=== PATIENT | female | born 1985 | race Caucasian/White ===

== ENCOUNTER → 2020-06-14 09:29 | Outpatient (CLI) | payer OTHER, SELFPAY ==
[2020-06-09 08:42] VITALS: BMI 19.2
--- NOTE | 2020-06-14 09:30 | US_ITS ---
STUDY: ULTRASOUND BREAST - RIGHT REASON FOR EXAM: Female, 35 years old. Palpable lump in the right breast. TECHNIQUE: Axial and longitudinal images of the RIGHT breast were performed with a high resolution ultrasound transducer. # OF IMAGES: 15 COMPARISON: None. FINDINGS: RIGHT Breast: The 4 o''clock region of the breast was examined by ultrasound. No solid or cystic nodule is seen. There are mildly dilated ducts. US/Breast Limited Unilateral IMPRESSION: Mildly dilated ducts. No solid or cystic mass is seen. ASSESSMENT CATEGORY: BIRADS Category 2: Benign. A letter regarding these results will be sent to the patient by the facility within 30 days. Electronically Signed: Joe Yoo, at 11:21 EDT , Service support ,
== END ==
PROVIDERS: PCP Nurse Practitioner Family; Referring Provider Nurse Practitioner Women's Health; Visit Provider Nurse Practitioner Women's Health
DX: N63.10 Unspecified lump in the right breast, unspecified quadrant (principal)
CPT/HCPCS: 76642

== ENCOUNTER → 2020-07-07 16:23 | Outpatient (CLI) | payer OTHER, SELFPAY ==
[2020-07-07 10:08] VITALS: BMI 18.9
[2020-07-07 18:17] LABS: Amphetamine Urine VISTA NEGATIVE (<1000 ng/mL); Barbiturate Urine VISTA NEGATIVE (< 200 ng/mL); Benzodiazepine Urine VISTA NEGATIVE (< 200 ng/mL); Cocaine Urine VISTA NEGATIVE (< 300 ng/mL); Ecstacy Urine VISTA NEGATIVE (< 500 ng/mL); Methadone Urine VISTA NEGATIVE (< 300 ng/mL); PCP Urine VISTA NEGATIVE (< 25 ng/mL); THC Urine VISTA NEGATIVE (< 50 ng/mL); Vista UDS pH Range 6
[2020-07-12 03:06] LABS: Chlamydia By Nucleic Acid AMP Negative (Negative)
[2020-07-12 12:06] LABS: Gonococcus By Nucleic Acid AMP Negative (Negative)
[2020-07-12 15:39] LABS: HPV APTIMA, High Risk Negative (Negative)
== END ==
PROVIDERS: PCP Nurse Practitioner Family; Visit Provider Obstetrics & Gynecology
DX: O09.90 Supervision of high risk pregnancy, unspecified, unspecified trimester (principal); Z12.4 Encounter for screening for malignant neoplasm of cervix; Z3A.00 Weeks of gestation of pregnancy not specified
CPT/HCPCS: 80307; 87086; 87088; 87491; 87591; 87624; 88175; G0145

== ENCOUNTER → 2020-07-21 11:39 | Outpatient (CLI) | payer OTHER, SELFPAY ==
[2020-07-07 10:08] VITALS: BMI 18.9
[2020-07-21 12:22] LABS: Absolute Lymphocyte Count 1.28 X10^3/uL (0.83-4.51); Absolute Neutrophil Count 6.2 X10^3/uL (2.0-7.7); Basophil# 0.04 X10^3/uL; Basophil% 0.5 % (0-1); Eosinophil# 0.12 X10^3/uL; Eosinophils% 1.4 % (0-5); Hemoglobin 13.5 g/dL (12.0-15.0); Lymphocyte # 1.28 X10^3/ul (4.0); Mean Corp Hgb Conc 32.9 g/dL (32-36); Mean Corpuscular Hgb 30.5 pg (27.0-32.0); Mean Corpuscular Volume 92.8 fL (81-99); Mean Platelet Vol. 10.3 fl (6.2-12.0); Monocyte# 0.85 X10^3/uL; NRBC Flagged by Analyzer 0 % (0-5); Neutrophil # 6.22 X10^3/uL (2.7-7.7); Neutrophil % 72.7 % (47-70); Platelet Count 197 K/mm3 (150-450); RBC Distribution Width CV 11.7 % (11.6-14.6); RBC Distribution Width SD 39.6 fl (35.1-43.9); Red Blood Count 4.42 M/mm3 (4.2-5.4); White Blood Count 8.5 K/mm3 (4.4-11.0)
[2020-07-21 14:40] LABS: HIV - WCH Non-Reactive (Nonreactive); Hepatitis B Surface Antigen Non-Reactive (Nonreactive); Hepatitis C Antibody Non-Reactive (Nonreactive)
[2020-07-28 01:20] LABS: Rapid Plasmin Reagin (RPR) NONREACTIVE (NONREACTIVE)
== END ==
PROVIDERS: PCP Nurse Practitioner Family; Referring Provider Obstetrics & Gynecology; Visit Provider Obstetrics & Gynecology
DX: O09.90 Supervision of high risk pregnancy, unspecified, unspecified trimester (principal); O09.521 Supervision of elderly multigravida, first trimester; Z3A.00 Weeks of gestation of pregnancy not specified
CPT/HCPCS: 36415; 85025; 86592; 86703; 86803; 86850; 86900; 86901; 87340

== ENCOUNTER → 2020-08-01 14:01 | Outpatient (CLI) | payer OTHER, SELFPAY ==
[2020-08-01 13:31] VITALS: BMI 20.2
[2020-08-01 15:08] LABS: Rubella IgG Reactive (Nonreactive)
== END ==
PROVIDERS: PCP Nurse Practitioner Family; Referring Provider Obstetrics & Gynecology; Visit Provider Obstetrics & Gynecology
DX: O09.90 Supervision of high risk pregnancy, unspecified, unspecified trimester (principal); Z3A.00 Weeks of gestation of pregnancy not specified
CPT/HCPCS: 36415; 86762

== ENCOUNTER → 2020-11-17 12:39 | Outpatient (CLI) | payer OTHER, SELFPAY ==
[2020-10-27 13:56] VITALS: BMI 22.6
[2020-11-17 13:36] LABS: Absolute Lymphocyte Count 1.11 X10^3/uL (0.83-4.51); Absolute Neutrophil Count 8.7 X10^3/uL (2.0-7.7); Basophil# 0.08 X10^3/uL; Basophil% 0.7 % (0-1); Eosinophil# 0.14 X10^3/uL; Eosinophils% 1.2 % (0-5); Hematocrit 34.3 % (37-47); Hemoglobin 11.7 g/dL (12.0-15.0); Lymphocyte # 1.11 X10^3/ul (4.0); Lymphocyte % 9.9 % (19-41); Mean Corp Hgb Conc 34.1 g/dL (32-36); Mean Corpuscular Hgb 32.1 pg (27.0-32.0); Monocyte# 1.02 X10^3/uL; Monocyte% 9.1 % (0-10); NRBC Flagged by Analyzer 0 % (0-5); Neutrophil # 8.69 X10^3/uL (2.7-7.7); Neutrophil % 77.3 % (47-70); Platelet Count 193 K/mm3 (150-450); RBC Distribution Width CV 12.1 % (11.6-14.6); RBC Distribution Width SD 41.9 fl (35.1-43.9); Red Blood Count 3.65 M/mm3 (4.2-5.4); White Blood Count 11.2 K/mm3 (4.4-11.0)
[2020-11-17 13:56] LABS: Glucose Challenge Gest 1H 50g 96 mg/dL (70-140)
== END ==
PROVIDERS: PCP Nurse Practitioner Family; Referring Provider Obstetrics & Gynecology; Visit Provider Obstetrics & Gynecology
DX: Z34.90 Encounter for supervision of normal pregnancy, unspecified, unspecified trimester (principal)
CPT/HCPCS: 36415; 82950; 85025

== ENCOUNTER → 2021-01-13 15:28 | Outpatient (CLI) | payer OTHER, SELFPAY ==
[2021-01-13 14:11] VITALS: BMI 25.2
== END ==
PROVIDERS: PCP Nurse Practitioner Family; Referring Provider Obstetrics & Gynecology; Visit Provider Obstetrics & Gynecology
DX: Z34.90 Encounter for supervision of normal pregnancy, unspecified, unspecified trimester (principal); Z3A.36 36 weeks gestation of pregnancy
CPT/HCPCS: 87081

== ENCOUNTER 2021-02-17 10:00 | Inpatient (IN) | payer OTHER, SELFPAY ==
[2021-02-10 14:01] VITALS: BMI 27.4
[2021-02-17] VITALS (11 sets, daily range): BP systolic 95–121; BP diastolic 54–63; PULSE 74–95; RESP 16; TEMP 36.7–37.2; O2SAT 100; BMI 26.3
[2021-02-17] MEDS: Lactated Ringers 1,000 ML 50 ML IV (10:25)
[2021-02-17 10:37] LABS: Absolute Lymphocyte Count 1.18 X10^3/uL (0.83-4.51); Absolute Neutrophil Count 11.6 X10^3/uL (2.0-7.7); Basophil# 0.05 X10^3/uL; Basophil% 0.3 % (0-1); Eosinophils% 0.7 % (0-5); Hematocrit 37.5 % (37-47); Hemoglobin 12.5 g/dL (12.0-15.0); Lymphocyte # 1.18 X10^3/ul (0.83-4.51); Mean Corp Hgb Conc 33.3 g/dL (32-36); Mean Corpuscular Hgb 31.4 pg (27.0-32.0); Mean Corpuscular Volume 94.2 fL (81-99); Mean Platelet Vol. 10.2 fl (6.2-12.0); Monocyte# 1.51 X10^3/uL; Monocyte% 10.3 % (0-10); NRBC Flagged by Analyzer 0 % (0-5); Neutrophil # 11.64 X10^3/uL (2.7-7.7); Neutrophil % 79.4 % (47-70); POSITIVE DIFFERENTIAL YES; Platelet Count 225 K/mm3 (150-450); RBC Distribution Width CV 13.1 % (11.6-14.6); RBC Distribution Width SD 45.1 fl (35.1-43.9); Red Blood Count 3.98 M/mm3 (4.2-5.4); White Blood Count 14.7 K/mm3 (4.4-11.0)
[2021-02-17 10:40] LABS: Differential Indicated SCAN CRITERIA MET
[2021-02-17] MEDS: Oxytocin 30 units/NS 500 ml 30 UNITS/500 ML IV.SOLN 334 UNITS IV (11:09)
--- NOTE | 2021-02-17 11:26 | HP.PCM.OB_ITS ---
HPI - General General Date of Admission: 02/17/21 HPI Narrative MIKKI CORONA, is a 35 F at 41 weeks who presents in active labor. Maternal Data Information NASRIN Calculator Estimated Delivery Date Method Current WG Current Estimate 02/10/21 LMP (Certain) 41w 0d PFSH PFS Medical History (Updated 02/17/21 @ 11:[address] Sara Lopez MD) Migraines Home Medications magnesium sulfate 100 mg capsule 100 mg PO DAILY 06/09/20 [History Last Taken Unknown] vitamin#30 30 mg iron-10 mg iron-folic acid 1 mg-omg3 capsule 1 cap PO DAILY 06/09/20 [History Last Taken 02/15/21] Allergy/AdvReac Type Severity Reaction Status Date / Time No Known Allergies Allergy Verified 02/10/21 14:01 Family History Mother Hypertension Father DVT (deep venous thrombosis) Grandfather Heart disease Grandmother Breast cancer Grandfather Cancer Surgical History H/O oral surgery Social History Smoking Status: Never smoker second hand exposure: No alcohol intake: never substance use type: does not use caffeine: No what type of physical activity do you participate in: walking seatbelt use: always do you feel safe at home: Yes additional social history: Yfn- [place] Patient works at [employer] History 3 Elective abortions Hx Para 1 Spontaneous abortions 1 Hx # Term Pregnancies Ectopic pregnancies Hx # Pregnancies Multiple births # of living children 1 Past Pregnancies Del. Date Name GA/Weeks Outcome Route Bth Weight Gen Labor Lgth Anesthesia Del Locatn Provider FOB Unknown 2018 Michel 41 live - full term 7lbs 1oz Male 26 hours epidural [facility] Delivery Date: face up presentation; forceps were used Sabrina Gramajo Visit Details Expected Delivery Route/Plan by 41 weeks, plan nst at 40 Labor Preferences- labor support person: Yfn labor intervention preferences: none pain management options preferred: ? hydrotherapy, epidural cut cord/dad catch: maybe : yes PP control planned: condoms discussed possible routes of delivery and associated risks: [] special requests: [] Plans flu vaccine: given tdap vaccine: given rhogam: na LARC form signed: yes movement and labor precautions reviewed. Problem list reviewed and updated with the most current plan of care details and appropriate orders placed. Relevant counseling for the gestational age provided. Continue routine care and follow up unless otherwise noted in visit notes/problem list details OB Flowsheet Initial Weight: 120 lb Date -?-?-?-?-?-?-?-?-?-?-?-?- EGA Weight BP Urine Prot -?-?-?-?-?-?-?-?-?-?-?-?- Glucose FHR FuHt Pres Dilation -?-?-?-?-?-?-?-?-?-?-?-?- Effaced St Visit Note 07/07/20 -?-?-?-?-?-?-?-?-?-?-?-?- 8w 6d 117 lb 8 oz (-2 lb 8 oz) 98/60 -?-?-?-?-?-?-?-?-?-?-?-?- 185 -?-?-?-?-?-?-?-?-?-?-?-?- GP - CRL 23mm co nsistent with LMP. 08/01/20 -?-?-?-?-?-?-?-?-?-?-?-?- 12w 3d 125 lb 8 oz (+5 lb 8 oz) 90/70 Negative -?-?-?-?-?-?-?-?-?-?-?-?- Negative 130 -?-?-?-?-?-?-?-?-?-?-?-?- GP - no cramping or bleeding. PRR. No rubella drawn with NOB labs - will get drawn today. Anatomy scan ordered. GP - no cramping or bleeding . PRR. No rubella drawn with NOB labs - will get drawn today. Anatomy scan ordered. Discussed measures for constipation. 08/31/20 -?-?-?-?-?-?-?-?-?-?-?-?- 16w 5d 132 lb (+12 lb) 109/70 Negative -?-?-?-?-?-?-?-?-?-?-?-?- Negative 155 -?-?-?-?-?-?-?-?-?-?-?-?- Sm- no vb lof no cramping 09/30/20 -?-?-?-?-?-?-?-?-?-?-?-?- 21w 0d 140 lb (+20 lb) 110/76 Negative -?-?-?-?-?-?-?-?-?-?-?-?- Negative 145 -?-?-?-?-?-?-?-?-?-?-?-?- SM- no vb crampi ng 10/27/20 -?-?-?-?-?-?-?-?-?-?-?-?- 24w 6d 140 lb 8 oz (+20 lb 8 oz) 102/70 Negative -?-?-?-?-?-?-?-?-?-?-?-?- Negative 150 -?-?-?-?-?-?-?-?-?-?-?-?- GP - no ctx, LOF , VB, DFM. GCT next visit. Has F/U with MFM later this month. 11/17/20 -?-?-?-?-?-?-?-?-?-?-?-?- 27w 6d 145 lb (+25 lb) 106/60 Negative -?-?-?-?-?-?-?-?-?-?-?-?- Negative 154 28 -?-?-?-?-?-?-?-?-?-?-?-?- MH-No VB, LOF. 2 8 wk labs, tdap, larc. Next echo is 12/27. MFM growth US is 12/0512/02/20 -?-?-?-?-?-?-?-?-?-?-?-?- 30w 0d 150 lb (+30 lb) 118/62 Negative -?-?-?-?-?-?-?-?-?-?-?-?- Negative 145 29 -?-?-?-?-?-?-?-?-?-?-?-?- SM- no vb lof go od fm nor egular ctx has fu mfm scan next week, and then fu echo in 12/16/20 -?-?-?-?-?-?-?-?-?-?-?-?- 32w 0d 152 lb 4 oz (+32 lb 4 oz) 116/62 Negative -?-?-?-?-?-?-?-?-?-?-?-?- Negative 125 32 -?-?-?-?-?-?-?-?-?-?-?-?- GP - no LOF, VB, DFM, ctx. Denies complaints. 12/30/20 -?-?-?-?-?-?-?-?-?-?-?-?- 34w 0d 156 lb (+36 lb) 102/74 Negative -?-?-?-?-?-?-?-?-?-?-?-?- Negative 135 34 -?-?-?-?-?-?-?-?-?-?-?-?- SM- no vb lof go od fm no regular ctx 01/13/21 -?-?-?-?-?-?-?-?-?-?-?-?- 36w 0d 159 lb (+39 lb) 112/60 Negative -?-?-?-?-?-?-?-?-?-?-?-?- Negative 140 36 Cephalic -?-?-?-?-?-?-?-?-?-?-?-?- GP - no LOF, VB, DFM, ctx. GBS today. 01/19/21 -?-?-?-?-?-?-?-?-?-?-?-?- 36w 6d 162 lb 2 oz (+42 lb 2 oz) 128/72 Negative -?-?-?-?-?-?-?-?-?-?-?-?- Negative 145 37 Cephalic -?-?-?-?-?-?-?-?-?-?-?-?- GP - no LOF, VB, DFM, ctx. Denies complaints. 3 ER shifts left. 01/27/21 -?-?-?-?-?-?-?-?-?-?-?-?- 38w 0d 162 lb (+42 lb) 118/62 -?-?-?-?-?-?-?-?-?-?-?-?- 140 37 Cephalic -?-?-?-?-?-?-?-?-?-?-?-?- SM- no vb lof go od fm no regular ctx 02/03/21 -?-?-?-?-?-?-?-?-?-?-?-?- 39w 0d 163 lb (+43 lb) 123/77 Negative -?-?-?-?-?-?-?-?-?-?-?-?- Negative 140 38 Cephalic -?-?-?-?-?-?-?-?-?-?-?-?- SM- no vb lof go od fm some rectal pressure 02/10/21 -?-?-?-?-?-?-?-?-?-?-?-?- 40w 0d 170 lb 2 oz (+50 lb 2 oz) 120/80 Negative -?-?-?-?-?-?-?-?-?-?-?-?- Negative 130 40 Cephalic 1 -?-?-?-?-?-?-?-?-?-?-?-?- 50 -3 GP - no LO F, VB, DFM, ctx. NST reactive. BARBARA 11 with DVP 3.8. Scheduled for IOL at 41/0 02/17/21 -?-?-?-?-?-?-?-?-?-?-?-?- 41w 0d 163 lb 2.273 oz (+43 lb 2.273 oz) 121/61 -?-?-?-?-?-?-?-?-?-?-?-?- -?-?-?-?-?-?-?-?-?-?-?-?- NST FHR Rate Baby A Baseline: 130 Variability:: Moderate Accelerations:: 15 x 15 Decelerations:: None NST Reactive:: Yes FHR Category:: Category I Uterine Activity:: q2-3min ROS Eyes Eyes: Reports systems reviewed and no addt'l complaints, except as documented ENT HEENT: Reports systems reviewed and no addt'l complaints, except as documented Cardiovascular Cardiovascular: Reports systems reviewed and no addt'l complaints, except as documented Respiratory/Chest Respiratory/Chest: Reports systems reviewed and no addt'l complaints, except as documented Gastrointestinal Gastrointestinal: Reports systems reviewed and no addt'l complaints, except as documented Genitourinary Genitourinary: Reports systems reviewed and no addt'l complaints, except as documented Musculoskeletal Musculoskeletal: Reports systems reviewed and no addt'l complaints, except as documented Integumentary Integumentary: Reports systems reviewed and no addt'l complaints, except as documented Neurologic Neurologic: Reports systems reviewed and no addt'l complaints, except as documented Psychiatric Psychiatric: Reports systems reviewed and no addt'l complaints, except as documented Endocrine Endocrinology: Reports systems reviewed and no addt'l complaints, except as documented Hematologic/Lymphatic Hematologic/Lymphatic: Reports systems reviewed and no addt'l complaints, except as documented Allergic/Immunologic Allergic/Immunologic: Reports systems reviewed and no addt'l complaints, except as documented Vital Signs Vital Signs Vital Signs: 02/17/21 11:22 Pulse Rate 85 Blood Pressure 121/61 H BP Systolic 121 BP Diastolic 61 Weight Weight: 163 lb 2.273 oz Body Mass Index (BMI) 26.3 Physical Exam Const alert, oriented x3, no apparent distress, average body habitus, healthy appe aring and well nourished HEENT normocephalic and moist oral mucous membranes Head and Scalp: atraumatic Eyes PERRL and EOMs intact bilaterally Neck full ROM Resp normal respiratory effort, no retractions and no use of accessory muscles Cardio regular rate and regular rhythm GI soft to palpation, non-tender and non-distended Extremity normal to inspection and full ROM Skin no rashes or lesions noted Neuro no focal motor deficits and no sensory deficits noted Psych mental status grossly normal, affect normal, speech normal and activity/motor behavior normal Labs Labs Labs: Blood Type B POSITIVE Antibody Screen NEGATIVE Hct 37.5 % (37-47) Hgb 12.5 g/dL (12.0-15.0) Rubella IgG Antibody Reactive (Nonreactive) Hep Bs Antigen Non-Reactive (Nonreactive) Neisseria gonorrhoeae DNA (ALMA) Negative (Negative) HIV 1&2 Antibody Non-Reactive (Nonreactive) Glucose 1 Hr 50 gm 96 mg/dL (70-140) Miscellaneous Test Assessment & Plan (1) Active labor at term: PLAN: Patient presents IAL, plan expectant management for , pitocin/AROM PRN if needed. Pain management: plans natural GBS negative. Management of any complications: none I have reviewed the [facility] and made any clinically relevant updates. (2) COVID-19 vaccine administered: COMMENT: moderna. s/p 2 doses. no covid test needed prior to delivery. (3) 32 weeks gestation of : COMMENT: COVID test ordered 12/21/20 (sche 02/03 2:40pm) (4) Abnormal echocardiogram affecting antepartum care of mother: QUALIFIERS: Fetus number: single or unspecified fetus Qualified Code(s): O35.8XX0 - Maternal care for other (suspected) abnormality and damage, not applicable or unspecified COMMENT: right sided aortic arch- confirmed at [facility] on 10/14/2020:repeat echo 4 weeks (12/27)and will need cardiology visit 1-2 wks post delivery. (5) AMA (advanced maternal age) multigravida 35+: QUALIFIERS: Trimester: second trimester Qualified Code(s): O09.522 - Supervision of elderly multigravida, second trimester COMMENT: growth scan at 36 weeks (6) Supervision of high risk , antepartum: COMMENT: PRR NASRIN 02/10/21, girl, PC: Michel Spouse: Yfn (7) : QUALIFIERS: Weeks of gestation: 40 weeks Qualified Code(s): Z3A.40 - 40 weeks gestation of COMMENT: Declines carrier and NTD, genetic low risk. anatomy reviewed. Negative GBS
--- NOTE | 2021-02-17 11:33 | EX.PCM.OBRPT ---
Assessment & Plan (1) Vaginal delivery: (2) Active labor at term: (3) COVID-19 vaccine administered: COMMENT: moderna. s/p 2 doses. no covid test needed prior to delivery. (4) 32 weeks gestation of : COMMENT: COVID test ordered 12/21/20 (sche 02/03 2:40pm) (5) Abnormal echocardiogram affecting antepartum care of mother: QUALIFIERS: Fetus number: single or unspecified fetus Qualified Code(s): O35.8XX0 - Maternal care for other (suspected) abnormality and damage, not applicable or unspecified COMMENT: right sided aortic arch- [facility]:repeat echo 4 weeks (12/27)and will need cardiology visit 1-2 wks post delivery. (6) AMA (advanced maternal age) multigravida 35+: QUALIFIERS: Trimester: second trimester Qualified Code(s): O09.522 - Supervision of elderly multigravida, second trimester COMMENT: growth scan at 36 weeks (7) Supervision of high risk , antepartum: COMMENT: PRR NASRIN 02/10/21, girl, PC: Michel Spouse: Yfn (8) : QUALIFIERS: Weeks of gestation: 40 weeks Qualified Code(s): Z3A.40 - 40 weeks gestation of COMMENT: Declines carrier and NTD, genetic low risk. anatomy reviewed. Negative GBS Maternal Data Information NASRIN Calculator Estimated Delivery Date Method Current WG Current Estimate 02/10/21 LMP (Certain) 41w 0d Vaginal Delivery Maternal Presentation Maternal Presentation: Active Labor Maternal Presentation: 35-year-old G2, P1 at 41 weeks admitted in active labor. Patient made rapid cervical change without augmentation. Operative Information Date of Procedure: 02/17/21 Pre-Operative Diagnosis: Term , active labor Post-Operative Diagnosis: Same Surgery / Procedure Performed: Spontaneous Vaginal Delivery Type of Anesthesia: Local with 1% Lidocaine Estimated Blood Loss: 200 cc Findings Description of Procedure: Patient began pushing and delivered the head in the PACHECO presentation. The head was delivered atraumatically and no nuchal cord was noted. The anterior and posterior shoulders delivered without complication followed by the rest of the infant and the was placed on the maternal abdomen. Delayed cord clamping was employed for approximately 60 seconds. Cord was clamped and cut and gentle traction was applied to the cord and the placenta delivered spontaneously immediately following it was noted to be intact with three-vessel cord. The perineum and vagina were inspected and a first-degree perineal laceration was noted and repaired in the standard fashion using 3-0 Vicryl Rapide suture. EBL was 200 cc. Patient and infant tolerated delivery well. Presentation: Vertex and PACHECO Amniotic Membrane Rupture Type: Spontaneous Amniotic Fluid Description: Clear Placental Delivery Description: Spontaneous Placenta Disposition: [facility] Cord Vessel Description: 3 Vessels Cord Entanglement: None A Gender: Female Delayed Cord Clamping: Yes Post Vaginal Delivery Medications Given After Delivery: IV Pitocin Episiotomy Description: None Laceration: Midline, Perineal Extension/lac and 1st degree Complication Complications: None Procedures Urinary/Genital [id number]: [id number] Vaginal Delivery [facility]
[2021-02-17] MEDS: Naproxen 500 MG Tablet PO ×2 (12:31→21:33)
[2021-02-17] MEDS: 0.9% Saline Lock 10 ML Syringe IV (13:43)
--- NOTE | 2021-02-17 16:42 | DCINST_ITS ---
Discharge Instructions Diet Discharge Diet: No restrictions Activity Discharge Activity: Return to Normal Activity, May Not Drive (while taking narcotic pain medications.) and May Shower May resume sexual activity in: 4-6 weeks Dressing / Incision Call your doctor if your incision/area has: Continuous Slow Oozing, Sudden Increased Bleeding, Increased Pain/ Swelling, Increased Redness and Foul Smelling Discharge Follow Up Care When: Call to make an appointment with your doctor in 6 weeks. If you had elevated Blood Pressure or 4th degree laceration you will need to be seen in 2 weeks. Test Results: Test results from this visit will be discussed in further detail at your follow-up appointment, if applicable. Discharge Plan Admission Admit Date/Time: 02/17/21 10:00 Attending Provider: Sara Lopez Primary Care Provider: Leti Walter NP Instructions Patient Instructions: After a Vaginal Discharge Orders/Prescriptions Prescriptions: New naproxen 250 MG tablet 250 - 500 mg PO Q8H PRN PRN (Reason: MILD PAIN) Qty: 30 RF: 1 Continued vitamin#30 30 mg iron-10 mg iron-folic acid 1 mg-omg3 capsule 30 mg iron-10 mg iron-1 mg capsule 1 cap PO DAILY RF: 0 magnesium sulfate 100 mg capsule 100 mg PO DAILY RF: 0 Referrals / Follow Up: Leti Walter NP, [employer] [Primary Care Provider] -
[2021-02-18] VITALS (8 sets, daily range): BP systolic 104–110; BP diastolic 55–58; PULSE 75–127; RESP 14–16; TEMP 36.8–36.9; O2SAT 82–98
--- NOTE | 2021-02-18 06:52 | PN.OBGYN_ITS ---
Subjective Subjective Patient doing well without complaints. Tolerating PO. Ambulating and voiding without difficulty. Feeding well. Denies chest pain, shortness of breath, calf pain/swelling, fevers, chills, lightheadedness. Objective Data Objective Data Vital Signs: Vital Signs Temp Pulse Resp BP Pulse Ox 98.3 F 84 16 108/55 L 82 02/18/21 04:30 02/18/21 04:37 02/18/21 04:30 02/18/21 04:37 02/18/21 04:36 Oxygen Delivery Method Room Air Weight: 163 lb 2.273 oz Body Mass Index (BMI) 26.3 Intake & Output: Intake and Output for Last 24 Hours 02/16/21 02/17/21 02/18/21 23:59 23:59 23:59 Intake Total 537.50 / 537.50 Balance 537.50 / 537.50 Lab / Micro Data Result Diagrams: 02/17/21 10:25 Labs: Laboratory Results - last 24 hr 02/17/21 02/17/21 10:25 10:25 WBC 14.7 H RBC 3.98 L Hgb 12.5 Hct 37.5 MCV 94.2 MCH 31.4 MCHC 33.3 RDW Std Deviation 45.1 H RDW Coeff of Timothy 13.1 Plt Count 225 MPV 10.2 Immature Gran % (Auto) 1.300 H Neut % (Auto) 79.4 H Lymph % (Auto) 8.0 L [place] % (Auto) 10.3 H Eos % (Auto) 0.7 Baso % (Auto) 0.3 Absolute Neuts (auto) 11.6 H Absolute Lymphs (auto) 1.18 Nucleated RBC % 0 [address] Path Review May foll Blood Type B POSITIVE Antibody Screen NEGATIVE ROS Constitutional Constitutional: Denies fever(s) Cardiovascular Cardiovascular: Denies chest pain, dyspnea or lightheadedness Gastrointestinal Gastrointestinal: Reports abdominal pain; Denies constipation or diarrhea Neurologic Neurologic: Denies dizziness or headache(s) Physical Exam Const alert, oriented x3, no apparent distress, average body habitus, healthy appearing and well nourished HEENT normocephalic Head and Scalp: atraumatic Eyes PERRL and EOMs intact bilaterally Neck full ROM Lymph Lymphatic: no lymphadenopathy noted Resp normal respiratory effort, no retractions and no use of accessory muscles Cardio regular rate GI soft to palpation, non-tender and non-distended Palpation: other Other Details: fundus firm Extremity normal to inspection and no clubbing, cyanosis or edema Skin no rashes or lesions noted Neuro no focal motor deficits and no sensory deficits noted Psych mental status grossly normal, affect normal and speech normal Assessment & Plan (1) Vaginal delivery: PLAN: s/p PPD # 1 1. routine post delivery care 2. breast feeding- support given 3. rh positive 4. rubella immune
[2021-02-20 13:27] LABS: Pathologist Review Reviewed
== END 2021-02-18 13:30 | disposition home or self-care (01) | DRG 807 ==
PROVIDERS: Admitting Provider Obstetrics & Gynecology; PCP Nurse Practitioner Family; Visit Provider Obstetrics & Gynecology
DX: O70.0 First degree perineal laceration during delivery (principal); Z37.0 Single live birth; Z3A.41 41 weeks gestation of pregnancy
CPT/HCPCS: 59025; 59050; 85025; 86850; 86900; 86901; 99218; J7120; A4216; G0378

== ENCOUNTER → 2025-05-20 | Outpatient (CLI) | payer MEDICAID, SELFPAY ==
[2025-05-24 21:07] LABS: Chlamydia By Nucleic Acid AMP Negative (Negative); Gonococcus By Nucleic Acid AMP Negative (Negative)
[2025-05-26 13:08] LABS: HPV APTIMA, High Risk Negative (Negative)
== END | disposition home or self-care (01) ==
LOC: LABSPEC 15:07
PROVIDERS: PCP Physician Assistant; Referring Provider Advanced Practice Midwife; Visit Provider Advanced Practice Midwife
DX: O09.90 Supervision of high risk pregnancy, unspecified, unspecified trimester (principal); Z3A.00 Weeks of gestation of pregnancy not specified; Z12.4 Encounter for screening for malignant neoplasm of cervix
CPT/HCPCS: 87086; 87491; 87591; 87624; 88175; G0145

== ENCOUNTER → 2025-06-10 | Outpatient (CLI) | payer MEDICAID, SELFPAY ==
[2025-06-10 13:23] LABS: Hematocrit 34.7 % (37-47); Hemoglobin 12.0 g/dL (12.0-15.0); Immature Granulocytes Count 0.050 X10^3/uL (0.0-0.0); Mean Corp Hgb Conc 34.6 g/dL (32-36); Mean Corpuscular Volume 87.8 fL (81-99); Mean Platelet Vol. 9.6 fl (6.2-12.0); NRBC Flagged by Analyzer 0 % (0-5); Platelet Count 189 K/mm3 (150-450); RBC Distribution Width CV 11.9 % (11.6-14.6); RBC Distribution Width SD 38.3 fl (35.1-43.9); Red Blood Count 3.95 M/mm3 (4.2-5.4); White Blood Count 9.1 K/mm3 (4.4-11.0)
[2025-06-10 17:09] LABS: HIV Nonreactive (Nonreactive); Hepatitis B Surface Antigen Nonreactive (Nonreactive); Hepatitis C Antibody Nonreactive (Nonreactive); Syphilis Antibodies Nonreactive (Nonreactive)
== END | disposition home or self-care (01) ==
LOC: LAB 12:49
PROVIDERS: PCP Physician Assistant; Referring Provider Advanced Practice Midwife; Visit Provider Advanced Practice Midwife
DX: O09.90 Supervision of high risk pregnancy, unspecified, unspecified trimester (principal); Z3A.00 Weeks of gestation of pregnancy not specified
CPT/HCPCS: 36415; 85025; 86703; 86762; 86780; 86803; 86850; 86900; 86901; 87340